=== PATIENT | female | born 1940 | race Hispanic/Latino ===

== ENCOUNTER 2018-11-20 08:25 | Outpatient (CLI) | payer MEDICARE ==
--- NOTE | 2018-11-20 12:01 | CT ---
CT ABDOMEN AND PELVIS WITH AND WITHOUT IV CONTRAST: Date: 11/20/18 HISTORY: Microscopic hematuria. History of left breast cancer, left lumpectomy, and chemo/radiation therapy se veral years ago. COMPARISON: 10/03/14. FINDINGS: There are mild patchy densities in the right lung base. There are punctate radiopaque densities in th e dependent portion of the gallbladder. The liver, spleen, pancreas, and right adrenal gland are norm al. The 2.0 x 2.6 cm left adrenal nodule is stable. No calculi seen in the kidneys, ureters, or the urinary bladder. No hydroureteronephrosis is noted on either side. There are low density lesions in the kidneys, one of which was noted in the right inferior pole. The others were not definitely seen on the previous study. The small cyst in the inferior pole of the rig ht kidney is stable. There is normal contrast excretion into the ureters and urinary bladder. No free air, free fluid, or lymphadenopathy seen in the abdomen or pelvis. There are vascular calcifi cations without evidence of aneurysmal dilatation of the abdominal aorta. A small hiatal hernia is ag ain seen. There are degenerative changes in the spine. A right hip arthroplasty is present. There is colonic diverticulosis. Uterus is present. A tiny, fat-containing umbilical hernia is present. A subc utaneous nodule in the right anterolateral abdominal wall is again seen. IMPRESSION: 1. No CT evidence of urinary tract calculi/obstruction, or enhancing renal mass. 2. Probable renal cysts. Confirmation is recommended with renal ultrasound. 3. Colonic diverticulosis. 4. Small hiatal hernia. 5. Stable left adrenal nodule. POS: MACK
[2018-11-20] MEDS ORDERED: ISOVUE-370 76%-LOCM 1 ML ONE (16:53)
== END 2018-11-20 08:26 | disposition home or self-care (01) ==
LOC: BICCT 08:25
PROVIDERS: ATTEND Urology
DX: R31.29 Other microscopic hematuria (principal); K57.30 Diverticulosis of large intestine without perforation or abscess without bleeding; K44.9 Diaphragmatic hernia without obstruction or gangrene; E27.8 Other specified disorders of adrenal gland
CPT/HCPCS: 74178; 82565

== ENCOUNTER 2019-01-02 01:15 | Outpatient (CLI) | payer MEDICARE ==
[2019-01-02 11:01] LABS: Hemoglobin 13.8 g/dL (12.0-16.0); Mean Corpuscular Volume 91.1 fL (78.0-98.0); Mean Platelet Volume 7.8 fL (7.4-10.4); Platelet Count 273 thou/uL (130-400); RBC Distribution Width 12.2 % (11.5-14.5); Red Blood Cell (RBC) Count 4.59 mill/uL (4.20-5.40); White Blood Cell (WBC) Count 8.1 thou/uL (4.8-10.8)
--- NOTE | 2019-01-02 16:32 | EKG ---
Test Reason : Blood Pressure : / mmHG Vent. Rate : 070 BPM Atrial Rate : 070 BPM P-R Int : 178 ms QRS Dur : 086 ms QT Int : 420 ms P-R-T Axes : 040 000 013 degrees QTc Int : 453 ms Normal sinus rhythm Anterior infarct , age undetermined cannot be excluded Abnormal ECG Confirmed by ASHWIN VIRGEN ([id number]) on 01/02/2019 4:31:56 PM Referred By: FRED Confirmed By:ASHWIN VIRGEN
== END 2019-01-02 01:16 | disposition home or self-care (01) ==
LOC: LABBT 01:15
PROVIDERS: ATTEND Urology
DX: Z01.818 Encounter for other preprocedural examination (principal); R31.29 Other microscopic hematuria; E27.9 Disorder of adrenal gland, unspecified; R35.1 Nocturia; N39.41 Urge incontinence; R35.0 Frequency of micturition; Q61.9 Cystic kidney disease, unspecified; R89.9 Unspecified abnormal finding in specimens from other organs, systems and tissues
CPT/HCPCS: 85027; 93005; 93010

== ENCOUNTER 2019-01-16 05:37 | Day surgery (SDC) | payer MEDICARE ==
[2019-01-02 10:08] VITALS: BMI 28.6
[2019-01-16] MEDS ORDERED: CEFAZOLIN 1 GM in Sodium Chloride 0.9% 100 ML IVPB SCH (06:00)
[2019-01-16] MEDS ORDERED: Fentanyl 100 MCG/2 ML VIAL ONE (06:45)
[2019-01-16] MEDS ORDERED: Iothalamate Meglumine 60% 50 ML VIAL FS ONE (07:05)
[2019-01-16] MEDS ORDERED: PHENYLEPHRINE-NS 100 MCG/ML 10 ML SYRINGE ONE (08:29)
[2019-01-16] MEDS ORDERED: Dexamethasone 20 MG/5 ML VIAL ONE (08:29)
[2019-01-16] MEDS ORDERED: Ondansetron PF 4 MG/2 ML Vial ONE (08:29)
[2019-01-16] MEDS ORDERED: ePHEDrine 50 MG/ML VIAL ONE (08:29)
[2019-01-16] MEDS ORDERED: PROPOFOL 200 MG/20 ML VIAL ONE (08:29)
[2019-01-16] MEDS ORDERED: Lidocaine 1% PF 5 ML VIAL ONE (08:29)
[2019-01-16] MEDS ORDERED: B & O ONE (08:44)
[2019-01-16] MEDS ORDERED: HYDROcodone/Acetaminophen 5/325 mg Tablet ONE (10:36)
--- NOTE | 2019-01-16 11:55 | OP ---
DATE OF PROCEDURE: 01/16/2019 PREOPERATIVE DIAGNOSIS: Small bladder tumor. POSTOPERATIVE DIAGNOSIS: Small bladder tumor. PROCEDURES PERFORMED: Cystoscopy, transurethral resection of bladder tumor and bladder biopsies with fulguration, mitomycin. ANESTHESIA: General with laryngeal mask airway. FINDINGS: Small tumor at the bladder neck extending to the bladder floor. No other abnormal findings or mucosa. SPECIMENS: Random biopsies; right wall, left wall, trigone, posterior wall and dome and then, there were biopsies of the mass at the bladder neck on the left and bladder floor on the left and then, there was actual resection specimens from each of this. COMPLICATIONS: None. DRAIN REMAINING: An 18-Swazi 2-way. INDICATIONS OF PROCEDURE: The patient is a 78-year-old female, who was seen in the office for microhematuria and overactive bladder and noted to have a small bladder tumor, so was set up for resection. DESCRIPTION OF PROCEDURE: She was brought into the room by Anesthesia and laid on the table in supine position. After receiving general anesthetic, her legs were placed in lithotomy position and her perineum was prepped and draped in sterile fashion. Using a 30 and a 70 degree lens, the bladder was inspected and found to have a known small bladder tumor at the bladder neck, did appear to extend and be somewhat to the left bladder floor. There were no other abnormal findings in the bladder and ureteral orifices were in normal position. So at this point, random bladder biopsies were performed with cold cup biopsy of the right wall, left wall, posterior wall, trigone, and dome. Then, there were cold cup biopsies taken of the tumor itself from the bladder neck first and then the bladder floor. Then, the cystoscope was exchanged out to a resectoscope and the tumor areas were resected fully sending a separate specimen from the bladder neck tumor as well as the bladder floor tumor. Then, hemostasis was achieved with coagulation with the loop on all the prior biopsies about as well as the tumor spots. All specimens were extracted and sent with the bladder decompressed. No bleeding was noted. So at this point, the scope was removed the final time and an 18-Swazi Burr was placed and then 40 mg of mitomycin was instilled, the bladder clamped and attached to the drainage bag, but still kept clamped and she would have that for the hour in the postoperative period. At this point, the patient was awakened and transferred to the PACU. Job ID: [id number]
== END 2019-01-16 11:41 | disposition home or self-care (01) ==
LOC: SDC 05:37
PROVIDERS: ATTEND Urology
PROC: 0T5B8ZZ Destruction of Bladder, Via Natural or Artificial Opening Endoscopic (ICD-10-PCS; principal; 2019-01-16)
PROC: 0TBB8ZX Excision of Bladder, Via Natural or Artificial Opening Endoscopic, Diagnostic (ICD-10-PCS; 2019-01-16)
DX: D49.4 Neoplasm of unspecified behavior of bladder (principal); R31.29 Other microscopic hematuria; N32.81 Overactive bladder
CPT/HCPCS: 52204; 52234; J9280; 88305; 88307; C1758; J0690; J1100; J2001; J2405; J2704; J3010; J3490; J7050; Q9961

== ENCOUNTER 2019-02-01 11:20 | Outpatient (CLI) | payer MEDICARE ==
[2019-02-01 13:47] LABS: Anion Gap 13 mmol/L (10-20); BUN (Urea Nitrogen) 32 mg/dL (9.8-20.1); Calc. Creatinine Clearance 0 mL/min (70-130); Calcium 9.9 mg/dL (7.8-10.44); Carbon Dioxide 23 mmol/L (23-31); Chloride 107 mmol/L (98-107); Estimated GFR-MDRD 40; Glucose 97 mg/dL (83-110); Sodium 139 mmol/L (136-145)
== END 2019-02-01 11:21 | disposition home or self-care (01) ==
LOC: LABBT 11:20
PROVIDERS: ATTEND Urology
DX: Z01.812 Encounter for preprocedural laboratory examination (principal); C67.9 Malignant neoplasm of bladder, unspecified; R31.29 Other microscopic hematuria; E27.9 Disorder of adrenal gland, unspecified; R35.1 Nocturia; N39.41 Urge incontinence; R35.0 Frequency of micturition; Q61.9 Cystic kidney disease, unspecified; R89.9 Unspecified abnormal finding in specimens from other organs, systems and tissues
CPT/HCPCS: 80048

== ENCOUNTER 2019-02-06 06:02 | Day surgery (SDC) | payer MEDICARE ==
[2019-02-01 11:34] VITALS: BMI 28.5
[2019-02-06] MEDS ORDERED: Levofloxacin 500 mg/D5W 100 ml Premix Bag ONE (06:26)
[2019-02-06] MEDS ORDERED: Fentanyl 100 MCG/2 ML VIAL ONE (08:44)
[2019-02-06] MEDS ORDERED: Ondansetron PF 4 MG/2 ML Vial ONE (12:36)
[2019-02-06] MEDS ORDERED: Rocuronium Bromide 10 MG/ML (10ML VIAL) ONE (12:36)
[2019-02-06] MEDS ORDERED: ePHEDrine 50 MG/ML VIAL ONE (12:36)
[2019-02-06] MEDS ORDERED: Dexamethasone 20 MG/5 ML VIAL ONE (12:36)
[2019-02-06] MEDS ORDERED: PROPOFOL 200 MG/20 ML VIAL ONE (12:36)
[2019-02-06] MEDS ORDERED: Glycopyrrolate 0.2 MG/ML 5 ML SYRINGE ONE (12:36)
[2019-02-06] MEDS ORDERED: Lidocaine 1% PF 5 ML VIAL ONE (12:36)
[2019-02-06] MEDS ORDERED: PHENYLEPHRINE-NS 100 MCG/ML 10 ML SYRINGE ONE (12:36)
--- NOTE | 2019-02-06 15:16 | OP ---
DATE OF PROCEDURE: 02/06/2019 PREOPERATIVE DIAGNOSES: Bladder cancer, T1 G3 status post recent transurethral resection to determine this, returning for a repeat transurethral resection of the bladder tumor base. ANESTHESIA: General with laryngeal mask with ET tube. COMPLICATIONS: None. SPECIMENS: Bladder tumor base. DRAINS: Drains remaining, 18-Swedish 2-way. PROCEDURES PERFORMED: Transurethral resection of the bladder tumor base with instillation of mitomycin. INDICATIONS OF PROCEDURE: The patient is a 78-year-old female, who was followed in the office for issues and noted to have micro hematuria, which resulted in a small tumor being noted on cystoscopy and so, she was set up for resection, which revealed larger at the time of resection and ultimately came back for high-grade disease as well as CIS on a random bladder biopsy with path being T1 disease, so she returns for repeat resection. DESCRIPTION OF PROCEDURE: The patient was brought into the room by Anesthesia, laid on the table in supine position. After receiving general anesthetic, her legs were placed in lithotomy position and her perineum was prepped and draped in a sterile fashion. Using a 25-Swedish resectoscope, the urethra has traversed, the bladder inspected at the tumor base. Further resection was taken of the entire bed, where prior resection had taken place and then hemostasis was achieved with the loop as well as switching over to the button for further coagulative properties with the bladder decompressed. Hemostasis was ensured and the bladder emptied, resectoscope removed, and an 18-Swedish catheter placed to gravity. Then, a total of 40 mg mitomycin was instilled and the tube clamped, and the patient was awakened and transferred to PACU in stable condition with all remain approximately an hour and then be removed leaving the indwelling remaining for 24-hour period. Job ID: [id number]
--- NOTE | 2019-02-08 06:50 | PQF ---
[facility] POST DISCHARGE CLINICAL DOCUMENTATION IMPROVEMENT CLARIFICATION FORM l Todays Date: 02/06/19 l Patients Name OTIS HOPKINS l l Admit Date 02/06/19 l Disch Date 02/06/19 Metal Fabricating Inspector Name Princess Ash Email: @[email or web address] Cell: [phone] To be completed by Metal Fabricating Inspector: Present Clinical Indicators - Signs / Symptoms Results and Location in Medical Record [ ] Documentation of: [ ] [ ] Documentation of: [ ] [ ] Documentation of: [ ] [ ] Documentation of: [ ] [ ] Risks [ ] [ ] [ ] Treatment [ ] RESECTION OF BLADDER TUMOR Query for size of bladder tumor [ ] Resection BED of PRIOR tumor was about [id number] [ ] To be completed by Physician: VENUS WADE The documentation in this patients record requires clarification to ensure coding compliance and accuracy. Check the appropriate box and include in your discharge summary. [ ] [ ] [ ] [ ] Please check this box if this does not apply to this patient [ ] Unable to determine [ ] Other diagnosis: T1G3 disease with repeat resectino of bed being standard of care to ensure proper staging Review the following information and exercise your independent professional judgment in responding to the clarification. Based upon the clinical findings, risk factors, and treatment, please clarify if you are treating one of the above probable or suspected diagnoses. Physician Signature: ___Venus James Date 4/11/19_ Time [address] [facility]
== END 2019-02-06 10:45 | disposition home or self-care (01) ==
LOC: SDC 06:02
PROVIDERS: ATTEND Urology
PROC: 0TBB8ZX Excision of Bladder, Via Natural or Artificial Opening Endoscopic, Diagnostic (ICD-10-PCS; principal; 2019-02-06)
PROC: 3E0K705 Introduction of Other Antineoplastic into Genitourinary Tract, Via Natural or Artificial Opening (ICD-10-PCS; 2019-02-06)
DX: N30.00 Acute cystitis without hematuria (principal); N32.89 Other specified disorders of bladder; I10 Essential (primary) hypertension; E78.00 Pure hypercholesterolemia, unspecified; Z85.3 Personal history of malignant neoplasm of breast; Z92.21 Personal history of antineoplastic chemotherapy; Z92.3 Personal history of irradiation; Z79.899 Other long term (current) drug therapy; Z98.890 Other specified postprocedural states
CPT/HCPCS: 51720; 52235; 88305; J9280; J1100; J1956; J2001; J2405; J2704; J3010; J3490; J7050

== ENCOUNTER 2020-09-22 14:07 | Inpatient (IN) | payer MEDICARE ==
[2020-09-22 15:10] LABS: #Eosinphils 0.3 thou/uL (0.0-0.7); #Lymphocytes 1.5 thou/uL (1.20-3.40); #Monocytes 0.7 thou/uL (0.11-0.59); #Neutrophils 10.2 thou/uL (1.40-6.50); %Basophils 0.4 % (0.0-1.0); %Eosinophils 2.6 % (0.0-10.0); %Lymphocytes 11.9 % (21.0-51.0); %Monocytes 5.7 % (0.0-10.0); %Neutrophils 79.5 % (42.0-75.0); Hemoglobin 14.1 g/dL (12.0-16.0); Mean Corpuscular HGB CONC 33.7 g/dL (32.0-36.0); Mean Corpuscular Hemoglobin 30.9 pg (27.0-31.0); Mean Corpuscular Volume 91.8 fL (78.0-98.0); Platelet Count 293 thou/uL (130-400); RBC Distribution Width 12.6 % (11.5-14.5); Red Blood Cell (RBC) Count 4.56 mill/uL (4.20-5.40); White Blood Cell (WBC) Count 12.9 thou/uL (4.8-10.8)
--- NOTE | 2020-09-22 15:23 | CT ---
CT head noncontrast HISTORY: Altered mental status. Dizziness. FINDINGS: No comparison. There is no evidence of acute intracranial hemorrhage or infarct. Diffuse cortical atrophy and mild c hronic ischemic small vessel disease are apparent. There is no mass effect or shift of midline structures. Calcification within the arterial structures of the brain base. IMPRESSION : No acute intracranial abnormalities are demonstrated. Atherosclerosis.
[2020-09-22 15:33] LABS: Bacteria/HPF 4+ HPF (None Seen); Bilirubin Negative (Negative); Blood, Urine 1+ (Negative); Clarity Turbid (Clear); Glucose, Urine (Dipstick) Normal (Negative); Ketone, Urine Negative (Negative); Leukocyte 500 Leu/uL (Negative); Nitrite Negative (Negative); Protein, Urine (Dipstick) 70 mg/dL (Neg-Trace); Specific Gravity, Urine 1.013 (1.002-1.036); Squamous Epithelial 0-3 HPF (0-3); Urobilinogen Normal mg/dL (Less than 2); WBC/HPF Greater than 50 HPF (0-3); pH, Urine 6.5 (5.0-9.0)
[2020-09-22 15:37] LABS: ALT (SGPT) 22 U/L (8-55); AST (SGOT) 38 U/L (5-34); Albumin 4.3 g/dL (3.4-4.8); Alkaline Phosphatase 97 U/L (40-110); Anion Gap 16 mmol/L (10-20); BUN (Urea Nitrogen) 23 mg/dL (9.8-20.1); Bilirubin, Total 0.2 mg/dL (0.2-1.2); Calc. Creatinine Clearance 0 mL/min (70-130); Calcium 9.8 mg/dL (7.8-10.44); Carbon Dioxide 23 mmol/L (23-31); Chloride 103 mmol/L (98-107); Estimated GFR-MDRD 35; Globulin 3.9 g/dL (2.4-3.5); Glucose 96 mg/dL (83-110); Potassium 3.9 mmol/L (3.5-5.1); Protein, Total 8.2 g/dL (6.0-8.3); Sodium 138 mmol/L (136-145)
[2020-09-22 15:55] LABS: CKMB 1.3 ng/mL (0-6.6)
[2020-09-22] MEDS ORDERED: cefTRIAXone\\ROCEPHIN 1 GM VIAL ONE (16:06)
--- NOTE | 2020-09-22 16:13 | RAD ---
PORTABLE CHEST: History: Syncope Comparison: 02-23-08 FINDINGS: Heart size is enlarged. There are atherosclerotic changes of the aorta. Lungs show chronic appearing change without focal infiltrates. Mitral annulus calcifications are present. IMPRESSION: Cardiomegaly with chronic appearing lung change. POS: AH
[2020-09-22] MEDS ORDERED: Acetaminophen 325 MG TAB PO PRN (17:29)
--- NOTE | 2020-09-22 18:36 | HP ---
CHIEF COMPLAINT: Balance problem. HISTORY OF PRESENT ILLNESS: This is an 80-year-old female with history of hypertension; bladder cancer, undergoing treatment with Dr. Gamal Tamayo of Urology; chronic kidney disease stage 3; dyslipidemia; remote history of breast cancer; who presents to the emergency room with a complaint of balance problems. The patient reports that occurred today when she was at [employer]. She had to rely on others to get to the table. She denies feeling dizzy or feeling like she was going to pass out. She also denies feeling lightheaded or like the room was spinning. She states that it was only when she was standing, she did not have any problems sitting down. There were no precipitating or relieving factors. She does have a history of vertigo and states that today was different. The patient denies any nausea or vomiting, she denies any chest pain or difficulty breathing, she denies any urinary changes or bowel pattern changes. She also denies any falling. In the emergency room, the patient diagnosed with the UTI and received 1 L of IV fluid and 1 g of ceftriaxone, and hospitalist called for admission. ALLERGIES: NO KNOWN DRUG ALLERGIES. CURRENT MEDICATIONS: She is on losartan, cholesterol medicine, oxybutynin, but does not know the doses of any of these. PAST MEDICAL HISTORY: 1. Bladder cancer, undergoing treatment with Dr. Gamal Tamayo of Urology. 2. Vertigo. 3. Hypertension. 4. History of breast cancer and lumpectomy. 5. Chronic kidney disease stage 3. 6. Dyslipidemia. PAST SURGICAL HISTORY: 1. Hip replacement. 2. Lumpectomy. FAMILY HISTORY: Significant for a sister, who had bladder cancer and another sister, who had another type of cancer. SOCIAL HISTORY: The patient denies any tobacco or alcohol use. The patient is a full code. Her surrogate decision maker is her daughter, Sybil. REVIEW OF SYSTEMS: Positive for intermittent pain in the right side of her jaw that she states is due to her teeth, and chills. Negative for fevers, nausea, vomiting, or diarrhea. All remaining review of systems are reviewed and negative. PHYSICAL EXAMINATION: VITAL SIGNS: Blood pressure 140/57, pulse 84, respirations 20, temperature 98.7, saturations 95% on room air. GENERAL: Awake, alert, responsive, not in apparent distress. Able to speak in full sentences. HEENT: Her pupils are equal and round. Extraocular movements are intact. Oral mucosa is pink and moist. NECK: Supple, nontender. No carotid bruits. LYMPHATICS: No palpable cervical or supraclavicular lymphadenopathy. LUNGS: Clear to auscultation bilateral. No audible wheezing, rhonchi, or rales. HEART: Normal S1 and S2. Regular rate and rhythm. No significant murmur. ABDOMEN: Soft. Present bowel sounds. Nontender, nondistended. EXTREMITIES: No clubbing, cyanosis, or edema. NEURO: Strength in upper and lower extremities 5/5. Cranial nerves grossly intact. PSYCH: Appears euthymic. VASCULAR: 2+ radial pulses. SKIN: No present rashes. LABORATORY DATA: Personally reviewed. CBC; 12.9, 14.1, 41.9, 293. Chemistry; 138, 3.9, 103, 23, 23, 1.44, 96. T-bili 0.2, AST 38, ALT 22, alkaline phosphatase 97, total protein 8.2, albumin 4.3. Urinalysis present protein, 500 leukocyte esterase, 11 to 20 red blood cells, greater than 50 white blood cells, 4+ bacteria. IMAGING STUDIES: CT of the brain without contrast, no acute changes. Portable chest x-ray, cardiomegaly with chronic appearing lung change. Abdomen and pelvis CT on September 19 showed no obvious urinary bladder abnormality, diverticulosis, right renal cyst, cholelithiasis, left adrenal mass, punctate stable left renal calculi. IMPRESSION: 1. Balance problems, uncertain etiology in a patient with history of vertigo. 2. Possible urinary tract infection in a patient undergoing treatment for bladder cancer. 3. Indeterminate troponin and abnormal EKG, asymptomatic. 4. Hypertension, unknown control. 5. Chronic kidney disease, stage 3, stable. 6. Dyslipidemia. 7. Remote history of breast cancer. 8. Abnormal recent CT with diverticulosis, right renal cysts, cholelithiasis, and left adrenal mass, and left renal calculus will all need followup in the outpatient setting. PLAN: 1. Observation status in the hospital. 2. Consultation with Dr. Bravo of Urology. We will follow blood and urine culture, continue Rocephin. 3. Monitor on telemetry. Obtain two additional troponins and trend. If the patient remains asymptomatic and telemetry is normal, anticipate any evaluation can be deferred to the outpatient setting. 4. Obtain medication list, so that her home medications can be continued. 5. We will check orthostatic vital signs, PT and OT consults to evaluate strength and balance. 6. Check TSH in the morning. 7. DVT prophylaxis. The patient is ambulatory. We will use SCDs. 8. GI prophylaxis, not indicated. 9. Code status is full. Surrogate decision maker is the patient's daughter, Sybil. The patient is at high risk given age, comorbidities, and current presentation. Anticipated length of stay is 1 midnight at this time, further needs in the hospital will be based on input from Urology, and monitoring as noted above. I reviewed the plan of care with the patient, who demonstrates understanding and agrees, no questions or further needs at the end of evaluation. Job ID: [id number] MTDD
[2020-09-22 18:55] LABS: Troponin I 0.458 ng/mL (< 0.028)
[2020-09-22] MEDS ORDERED: Heparin 10,000 UNITS/ 10 ML VIAL SLOW IVP SCH (19:00)
[2020-09-22] MEDS ORDERED: Heparin 25,000 units/D5W 500 ML IVPB SCH (19:00)
[2020-09-22] MEDS ORDERED: hydrALAZINE 20 MG/ML VIAL SLOW IVP PRN (19:04)
--- NOTE | 2020-09-22 19:08 | PDOC.BPN ---
- Brief Progress Note Encounter Date: 09/22/20 Encounter Time: 19:05 Informed by RN that recent troponin is positive (0.45) which is a change compared to earlier. Although the patient is not having active chest pain, she did have a change in condition/balance which may reflect NSTEMI. Will start heparin drip/cardiac protocol - choosing this because of both chronic kidney disease and microscopic hematuria. Will also administer a full dose aspirin, start beta connor, order an echocardiogram and Cardiology consult. Manage blood pressure and order prn nitroglycerin. ER nurse advised of these orders.
[2020-09-22] MEDS ORDERED: Nitroglycerin 0.4 MG TAB (25 Tab Bottle) SL PRN (19:09)
[2020-09-22] MEDS ORDERED: Aspirin Chewable 81 MG TAB PO SCH (19:15)
[2020-09-22] MEDS ORDERED: Atorvastatin Calcium 20 MG TAB PO SCH (21:00)
[2020-09-22 21:28] LABS: Hemoglobin 14.2 g/dL (12.0-16.0); Platelet Count 251 thou/uL (130-400)
[2020-09-22 21:54] VITALS: BMI 25.8
[2020-09-22 22:00] LABS: Troponin I 0.968 ng/mL (< 0.028)
[2020-09-22] MEDS: Metoprolol Tartrate 25 MG TAB PO SCH (22:22)
[2020-09-23 04:39] LABS: #Basophils 0.1 thou/uL (0.0-0.2); #Eosinphils 0.1 thou/uL (0.0-0.7); #Lymphocytes 2.4 thou/uL (1.20-3.40); #Monocytes 0.7 thou/uL (0.11-0.59); #Neutrophils 10.5 thou/uL (1.40-6.50); %Basophils 0.6 % (0.0-1.0); %Eosinophils 0.8 % (0.0-10.0); %Lymphocytes 17.5 % (21.0-51.0); %Monocytes 5.4 % (0.0-10.0); %Neutrophils 75.8 % (42.0-75.0); Hemoglobin 12.4 g/dL (12.0-16.0); Mean Corpuscular HGB CONC 33.6 g/dL (32.0-36.0); Mean Corpuscular Hemoglobin 30.6 pg (27.0-31.0); Mean Corpuscular Volume 91.3 fL (78.0-98.0); Mean Platelet Volume 8.9 fL (7.4-10.4); Platelet Count 253 thou/uL (130-400); RBC Distribution Width 12.6 % (11.5-14.5); Red Blood Cell (RBC) Count 4.05 mill/uL (4.20-5.40); White Blood Cell (WBC) Count 13.9 thou/uL (4.8-10.8)
[2020-09-23 04:57] LABS: Anion Gap 17 mmol/L (10-20); BUN (Urea Nitrogen) 22 mg/dL (9.8-20.1); Calc. Creatinine Clearance 39 mL/min (70-130); Calcium 8.7 mg/dL (7.8-10.44); Carbon Dioxide 20 mmol/L (23-31); Chloride 103 mmol/L (98-107); Estimated GFR-MDRD 41; Glucose 107 mg/dL (83-110); Potassium 4.1 mmol/L (3.5-5.1); Sodium 136 mmol/L (136-145)
[2020-09-23 07:35] LABS: SARS-CoV-2 MS2 Positive; SARS-CoV-2 N Gene Negative; SARS-CoV-2 S Gene Negative; SARS-CoV-2 by NAA Not Detected (NotDetected); SARS-CoV-2 orf1ab Negative
--- NOTE | 2020-09-23 07:47 | CON ---
DATE OF CONSULTATION: 09/23/2020 REASON FOR CONSULT: Mental status changes and history of bladder cancer. HISTORY OF PRESENT ILLNESS: Ms. 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 James. The patient has subsequently transitioned her care with va, restaging TURBT demonstrated necrosis, no evidence of residual tumor and she has been treated and has completed her induction BCG, and has tolerated BCG uneventfully and was recently treated on September 22, with her maintenance #4 three weekly BCG. The patient states that per routine tolerated her BCG uneventfully. Denies chills, fever, dysuria, or significant gross hematuria. Subsequently, she presented to [facility], was having a meal. However, she had some dizziness and balance issue and felt that she was going to have a syncopal episode. She does have history of vertigo and felt that this was concerning and presented to the emergency room with no nausea, vomiting, or fever. In the emergency room, she was diagnosed for presumed UTI, received 1 g of Rocephin, and is admitted to the Medical Service. She states that she feels significantly better and denies dysuria, flank pain, chills, gross hematuria of concern. PAST MEDICAL HISTORY: Includes hypertension, hypercholesteremia, history of vertigo, history of breast cancer status post surgery and RT chemo, and bladder cancer pathologic T1 grade 3 TCC component of carcinoma in situ. PAST SURGICAL HISTORY: 1. Hip replacement in 2002. 2. TURBT in December 2018. 3. Restaging TURBT in January 2019. 4. She has undergone multiple surveillance cystoscopies in my office, last cystoscopy of record on September 03, 2020, demonstrates no residual cancer of concern. ALLERGIES: NO KNOWN DRUG ALLERGIES. MEDICATIONS INHOUSE: 1. Tylenol. 2. Aspirin 325. 3. Lipitor. 4. Rocephin. 5. Heparin drip. 6. Hydralazine. 7. Metoprolol. 8. Nitroglycerin. SOCIAL HISTORY: Negative for other malignancy. She is a , retired, and nonsmoker. REVIEW OF SYSTEMS: A 10-point review of systems as above, otherwise noncontributory. PHYSICAL EXAMINATION: VITAL SIGNS: T-current is 98, T-max of 100.2, 98, 67, 18, 94%, and 105/55. I's and O's are not documented. GENERAL: The patient appears to be in no acute distress. Alert and oriented. HEENT: Grossly unremarkable. HEART: Regular rate. LUNGS: Clear. ABDOMEN: Soft. No rigidity. No rebound. No CVA tenderness. No suprapubic tenderness or distention of concern. EXTREMITIES: No cyanosis, clubbing, or edema. PSYCHIATRIC: Appears to be appropriate and intact. NEUROLOGIC: I do not appreciate any gross focal deficits of concern. EXTREMITIES: No cyanosis, clubbing, or edema. MUSCULOSKELETAL: Moving all extremities equal and symmetric. SKIN: No gross lesions or rashes appreciated. PERTINENT LABORATORY DATA: White count 13, hemoglobin 12.4, and platelet 253. PTT is 88.4. The patient currently receiving anticoagulation. Creatinine is 1.25 and BUN is 22. Troponins on arrival 0.036, subsequently 0.458 and 0.968. Chest x-ray is grossly unremarkable, September 22, 2020. CT of the brain September 22, 2020, no acute abnormality. Staging CT, which was performed per my discretion September 19 demonstrates no visible recurrence or filling defect of concern. Incidental punctate left renal lithiasis, not of clinical significance, cholelithiasis, stable right renal cyst 1.7, and adrenal lesion, which was seen previously. UA; 500 leukocytes, 11 to 20 rbc's, greater than 50 wbc's, light yellow urine, 0 to 3 epithelials, and 4+ bacteria. Blood culture and urine culture are pending. IMPRESSION AND PLAN: 1. An 80-year-old female, admitted for mental status changes. CT and chest x- ray negative. 2. Elevated troponins. Remains on heparin drip. 3. 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 4. UA positive for bacteria with low-grade fever. Agree with Rocephin, await urine culture. Cardiology consultation and workup are in progress as she has elevated troponin. Monitor urine output, she may develop gross hematuria, as she is on heparin drip, and has history of BCG intravesical, which can cause inflammation of the bladder. We will have nurses keep voided urine at bedside to monitor for degree of hematuria. From urologic perspective, she is scheduled for her maintenance BCG dose next Tuesday. This will be pending her Cardiology workup, and her final culture. From urologic perspective, patient can be discharged with appropriate oral antibiotic regimen based on a urine culture for targeted antibiotic therapy. Job ID: [id number] MTDD
[2020-09-23] MEDS ORDERED: Milk Of Magnesia 30 ML UDCUP PO PRN (08:30)
[2020-09-23] MEDS ORDERED: Meclizine HCl 25 MG TAB PO PRN (08:30)
[2020-09-23] MEDS: Oxybutynin 5 MG TAB PO SCH (09:49)
[2020-09-23] MEDS: Metoprolol Tartrate 25 MG TAB PO SCH ×2 (09:49→20:29)
--- NOTE | 2020-09-23 14:05 | PDOC.HOSPP ---
- Subjective Encounter Date: 09/23/20 Encounter Time: 11:45 Subjective: Patient up in bed denies any chest pain or shortness of breath. - Objective Vital Signs & Weight: Vital Signs (12 hours) Temp Pulse Pulse Pulse Resp BP BP 09/23/20 11:05 62 61 127/67 134/62 09/23/20 06:14 09/23/20 03:43 98.1 F 67 18 BP BP BP Pulse Ox 09/23/20 11:05 09/23/20 06:14 105/55 L 120/57 L 99/52 L 09/23/20 03:43 106/57 L 94 L Weight Weight 150 lb 9.6 oz I&O: 09/22/20 09/23/20 09/24/20 06:59 06:59 06:59 Intake Total 368.2 Output Total 750 Balance -381.8 Result Diagrams: 09/23/20 04:00 09/23/20 04:00 Hospitalist ROS - Review of Systems Cardiovascular: denies: chest pain, palpitations, orthopnea, paroxysmal noc. dyspnea, edema, light headedness, other Gastrointestinal: denies: nausea, vomiting, abdominal pain, diarrhea, constipation, melena, hematochezia, other Genitourinary: denies: dysuria, frequency, incontinence, hematuria, retention, other - Medication Medications: Active Medications Generic Name Dose Route Start Last Admin Trade Name Freq PRN Reason Stop Dose Admin Metoprolol Tartrate 25 mg 09/22/20 21:00 09/23/20 09:49 Metoprolol Tartrate 25 Mg Tab PO 25 mg BID KILEY Administration Oxybutynin Chloride 5 mg 09/23/20 09:00 09/23/20 09:49 Oxybutynin 5 Mg Tab PO 5 mg DAILY KILEY Administration - Exam Neck: negative: supple, symmetric, no JVD, no thyromegaly, no lymphadenopathy, no carotid bruit, JVD Heart: negative: RRR, no murmur, no gallops, no rubs, normal peripheral pulses, irregular, diminshed peripheral pulses, murmur present, II/IV, III/IV Respiratory: negative: CTAB, no wheezes, no rales, no ronchi, normal chest expansion, no tachypnea, normal percussion, rales, rhonchi, tachypneic, wheezes Gastrointestinal: negative: soft, non-tender, non-distended, normal bowel sounds, no palpable masses, no hepatomegaly, no splenomegaly, no bruit, no guarding, no rigidity, tender to palpation, distended, diminished bowl sounds, voluntary guarding Hosp A/P (1) Unsteadiness Code(s): R26.81 - UNSTEADINESS ON FEET Status: Acute (2) NSTEMI (non-ST elevated myocardial infarction) Code(s): I21.4 - NON-ST ELEVATION (NSTEMI) MYOCARDIAL INFARCTION Status: Acute (3) UTI (urinary tract infection) Status: Acute (4) Bladder cancer Status: Acute - Plan Patient denies any chest pain or shortness of breath she came in with some gait disturbance. CT head was negative. Patient's orthostatics appropriate response. Spoke with urology who feels given her current treatment for bladder cancer she is at high risk for hematuria we will stop heparin drip for now cardiology has been consulted echocardiogram has been done. We will check a vitamin B12. Patient seen by physical therapy recommended discharge home. We will also get an MRI brain to rule out stroke.
--- NOTE | 2020-09-23 15:35 | MRI ---
MRI BRAIN NONCONTRAST: DATE: 09/23/2020 HISTORY: 80-year-old female with multiple falls due to dizziness and unsteady gait. Altered mental status. COMPARISON: No prior brain MRI FINDINGS: Tiny intra-axial lesions that are hyperintense on T2 WI and FLAIR, with restricted diffusion, consist ent with acute lacunar infarctions: 4 x 2 mm lesion in right cerebellar hemisphere. 5 x 4 mm lesion at medial right thalamus. 6 x 5 mm lesion at lateral aspect of left thalamus. Mild to moderate chronic ischemic white matter changes of cerebrum. No recent or major remote intra-axial hemorrhage. Ventricles are normal in size and configuration. Diffuse age-appropriate brain parenchymal volume loss. No mass effect, midline shift, or extra-axial fluid collection. Appropriate flow voids are maintained at central arteries of [place]. IMPRESSION: 3 tiny acute lacunar infarctions in the right cerebellar hemisphere and bilateral thalami.
[2020-09-23] MEDS ORDERED: cefTRIAXone\\ROCEPHIN 1 GM in Sodium Chloride 0.9% 100 ML IVPB SCH (17:00)
--- NOTE | 2020-09-23 17:28 | CON ---
DATE OF CONSULTATION: 09/23/2020 REASON FOR CONSULTATION: Sepsis with increased troponin. PRIMARY PLANS EXAMINER: Angelo Sahu MD HISTORY OF PRESENT ILLNESS: Ms. Vigil is an 80-year-old woman. The patient presented to the hospital with problem with her balance. She is not having chest pain or pressure. She felt dizzy and lightheaded, felt like she might pass out. She was found to have urinary tract infection, was admitted, found to have increased troponin also. There was no chest pain or pressure. The patient had undergone stress testing in [address] Sahu, not found to have any ischemia, normal stress test. REVIEW OF SYSTEMS: CONSTITUTIONAL: No significant weight gain or loss. VISION: No changes. HEARING: No changes. PULMONARY: No cough or wheezing. GASTROINTESTINAL: No nausea, vomiting, diarrhea. SKIN: No rashes. NEUROLOGIC: No unilateral weakness or numbness. PSYCHIATRIC: No unusual depression or anxiety. HEMATOLOGIC: No unusual bruising. GENITOURINARY: No burning with urination. PHYSICAL EXAMINATION: GENERAL: This is a pleasant elderly woman. She looks younger than her chronologic age of 80. VITAL SIGNS: Blood pressure has been variable 99/52 to 120/57, pulse 62 and regular. EYES: Sclerae nonicteric. MOUTH: Mucous membranes moist. NECK: Supple. No lymphadenopathy. LUNGS: Clear. CARDIAC: Normal S1, normal S2. There is no murmur, rub, or gallop. ABDOMEN: Soft, nontender. EXTREMITIES: Warm and dry. No clubbing or cyanosis. There is no edema. DIAGNOSTIC STUDIES: EKG, sinus rhythm, looks like an old inferior infarct, but it is not dramatically different from the EKG done in 2019. There are very small R-waves in III and aVF. Creatinine is 1.25. ASSESSMENT: 1. Urinary tract infection. 2. Type 2 myocardial infarction, [id number] myocardial infarction, demand ischemia. PLAN: 1. Agree with aspirin. 2. Agree with holding heparin for concern of having hematuria. 3. Continue metoprolol. 4. Echocardiogram has been done, I will review that. 5. No other recommendations at the present time. Job ID: [id number]
[2020-09-23] MEDS ORDERED: Aspirin 325 MG TAB PO SCH (20:00)
[2020-09-23] MEDS ORDERED: Atorvastatin Calcium 10 MG TAB PO SCH (21:00)
[2020-09-24 05:01] LABS: Critical Call Chem Troponin I RESULT DECREASING; Troponin I 0.632 ng/mL (< 0.028)
--- NOTE | 2020-09-24 07:45 | PRG ---
DATE OF SERVICE: 09/24/2020 SUBJECTIVE: The patient is feeling well. Denies dysuria, flank pain, or gross hematuria of concern. OBJECTIVE: VITAL SIGNS: Stable. She has been afebrile for 24 hours. GENERAL: The patient is in no acute distress. ABDOMEN: Soft, nontender, and nondistended. EXTREMITIES: No cyanosis, clubbing, or edema. LABORATORY STUDIES: Urine culture gram-negative tres. Final sensitivity, ID pending. Blood culture negative. IMPRESSION AND PLAN: 1. Ms. Vigil is an 80-year-old female with history of transitional cell carcinoma of the bladder, status post transurethral resection of bladder tumor on maintenance BCG. 2. Admitted for mental status changes, dizziness. 3. History of vertigo. 4. Gram-negative tres urinary tract infection. 5. Elevated troponins due to demand ischemia. The patient is clinically stable. From my perspective, the patient can be discharged when sensitivity ID finalized for targeted oral antibiotic regimen. She has an appointment with our office on Tuesday, which is for her schedule BCG. This will need to be deferred. However, I would like for her to come in for a nurse visit, so we made recheck the UA, C and S to proceed with BCG at the next 1 to 2 weeks. Recommend antibiotic therapy for minimum 7 to 10 days Job ID: [id number] [facility]
[2020-09-24] MEDS ORDERED: Cefdinir 300 MG CAP PO SCH (09:00)
[2020-09-24] MEDS: Metoprolol Tartrate 25 MG TAB PO SCH (09:10)
[2020-09-24] MEDS: Oxybutynin 5 MG TAB PO SCH (09:10)
--- NOTE | 2020-09-24 09:29 | PRG ---
DATE OF SERVICE: 09/24/2020 SUBJECTIVE: Ms. Vigil is sitting up at the bedside. She feels well. No complaints. No chest pain or pressure. OBJECTIVE: VITAL SIGNS: Blood pressure 109/57, pulse 66 and regular. LUNGS: Clear. CARDIAC: Normal S1, normal S2. ABDOMEN: Soft, nontender. EXTREMITIES: No edema. LABORATORY DATA: Echocardiogram today, wall motion with normal ejection fraction 55% to 60%. ASSESSMENT: Status post episode of sepsis with increased troponin. PLAN: From a cardiac standpoint, no further intervention necessary at this point. She is on oral antibiotics and metoprolol. From a cardiac standpoint, the patient could be and to follow up with Dr. Sahu within a few weeks. Job ID: [id number]
--- NOTE | 2020-09-24 11:43 | PQF ---
CLINICAL DOCUMENTATION CLARIFICATION FORM: Dear Dr. OCTAVIA GAINES Date: 09-24-20 Please exercise your independent, professional judgment in responding to the clarification form. Clinical indicators are provided on the bottom of this form for your review. Please check appropriate box(es) to clarify if the following diagnosis has been ruled in our ruled out: SEPSIS [ ] Ruled in diagnosis [x ] Continue to treat [ ] Resolved [ ] Ruled out diagnosis [ ] Other diagnosis [ ] Unable to determine In addition, please specify: Present on Admission (POA): [ x ] Yes [ ] No [ ] Unable to determine For continuity of documentation, please document condition throughout progress notes and discharge summary. Thank You. To be completed by CDI/Coding staff for physician review: CLINICAL INDICATORS - SIGNS / SYMPTOMS / LABS / RESULTS AND LOCATION IN MR: ER DX 09-22-20: UTI, ELEVATED TROPONIN. WEAKNESS DR. URENA 09-24-20: S/P EPISODE OF SEPSIS WITH INCREASED TROPONIN WBC: 09-22-20: 12.9 09-23-20: 13.9 NEUTROPHILS: 09-22-20: 79.5 09-23-20: 75.8 RISK FACTORS / RESULTS AND LOCATION IN MR: ER DX 09-22-20: UTI, ELEVATED TROPONIN. WEAKNESS DR. URENA 09-24-20: S/P EPISODE OF SEPSIS WITH INCREASED TROPONIN TREATMENTS / RESULTS AND LOCATION IN MR: ER NOTES 09-22-20: CEFTRIAXONE IV, NS IVF CDS Signature: Tigist Proctor Phone #: [phone] Date: 09-24-20 This is a permanent part of the Medical Record [facility]
[2020-09-24 12:43] VITALS: BP 132/58; TEMP 97.7
--- NOTE | 2020-09-25 02:47 | DIS ---
DATE OF ADMISSION: 09/23/2020 DATE OF DISCHARGE: 09/24/2020 DISCHARGE DIAGNOSES: 1. Sepsis, resolved. 2. Urinary tract infection. 3. Elevated troponins, most likely secondary to type 2 demand related. 4. Low vitamin D level. HOSPITAL COURSE: The patient is an 80-year-old female, who initially presented to the hospital with significant amount of balancing problems and dizziness. This happened a few days prior to coming into the hospital. She at that time was noted for having a UTI, which cultures indicated E coli. Given her history of bladder cancer, she is currently under treatment with BCG. She was noted to have some elevated troponins, however, had no chest pain, no significant EKG changes. She underwent an echocardiogram and a cardiology consult. Echocardiogram indicated an EF of 55% to 60%, left atrium is normal size. Per Cardiology, I recommended following up as an outpatient with her fire boat engineer, Dr. Sahu. The patient at this time was discharged home. She will follow up with Urology and Cardiology. HOME MEDICATIONS: Will be: 1. Aspirin 81 mg daily. 2. Cefdinir 300 mg b.i.d. 3. Vitamin B12 1000 mcg daily. She was also discharged on: 1. Metoprolol low dose 12.5 b.i.d. 2. Meclizine as needed. 3. Oxybutynin 5 mg daily. 4. Losartan/hydrochlorothiazide 1 daily. 5. Lovastatin 40 mg daily. PHYSICAL EXAMINATION: VITAL SIGNS: On discharge are as of the following, temperature of 98.1, pulse 70, respiratory rate , oxygen saturation 96% on room air, blood pressure 132/58. GENERAL: She is awake, alert, and oriented x3. Does not appear in distress. CV: S1, S2 present. No murmurs, rubs, or gallops. Again, she will be discharged home to follow up with her primary with Urology and Cardiology and also provided home health for her. Also, I have asked to check her blood pressures. Job ID: [id number]
== END 2020-09-24 14:38 | disposition home health service (06) | DRG 871 ==
LOC: ERS 14:07 → ERHOLD 16:27 → 2NO 20:28 → OBSVTOIN 09-23 08:35
PROVIDERS: ADMIT Family Medicine; ATTEND Internal Medicine
DX: A41.51 Sepsis due to Escherichia coli [E. coli] (principal); I21.A1 Myocardial infarction type 2; N39.0 Urinary tract infection, site not specified; Z20.828 Contact with and (suspected) exposure to other viral communicable diseases; I12.9 Hypertensive chronic kidney disease with stage 1 through stage 4 chronic kidney disease, or unspecified chronic kidney disease; N18.30 Chronic kidney disease, stage 3 unspecified; E78.5 Hyperlipidemia, unspecified; E78.00 Pure hypercholesterolemia, unspecified; Z96.651 Presence of right artificial knee joint; Z85.51 Personal history of malignant neoplasm of bladder; Z79.899 Other long term (current) drug therapy
CPT/HCPCS: 36415; 70450; 70551; 71045; 80048; 80053; 81003; 81015; 82553; 82607; 83605; 84443; 84484; 85025; 85730; 87040; 87077; 87086; 87186; 87635; 93005; 93306; 96365; G0378; J0696; J1644; J3490; U0003

== ENCOUNTER 2021-10-12 12:03 | Outpatient (CLI) | payer MEDICARE | END 2021-10-12 12:04 | disposition home or self-care (01) | LOC: BICCT 12:03 | PROVIDERS: ATTEND Urology | DX: C67.9 Malignant neoplasm of bladder, unspecified (principal); N28.9 Disorder of kidney and ureter, unspecified; K80.20 Calculus of gallbladder without cholecystitis without obstruction; K57.30 Diverticulosis of large intestine without perforation or abscess without bleeding; I70.90 Unspecified atherosclerosis; E27.8 Other specified disorders of adrenal gland | CPT/HCPCS: 74176 ==

== ENCOUNTER 2024-04-12 13:30 | Outpatient (CLI) | payer OTHER | END 2024-04-12 13:31 | disposition home or self-care (01) | LOC: BICCT 13:30 | PROVIDERS: ATTEND Urology | DX: C67.9 Malignant neoplasm of bladder, unspecified (principal); N28.1 Cyst of kidney, acquired; K57.30 Diverticulosis of large intestine without perforation or abscess without bleeding; E27.8 Other specified disorders of adrenal gland; I34.81 Nonrheumatic mitral (valve) annulus calcification; Z96.641 Presence of right artificial hip joint | CPT/HCPCS: 74178 ==

== ENCOUNTER 2024-08-28 15:50 | Inpatient (IN) | payer OTHER ==
[2024-08-28 16:53] LABS: #Basophils 0.05 10x3/uL (0.0-0.2); %Basophils 0.5 % (0.0-1.0); %Lymphocytes 24.1 % (21.0-51.0); %Monocytes 9.3 % (0.0-10.0); %Neutrophils 64.7 % (42.0-75.0); Hematocrit 38.4 % (36.0-47.0); Hemoglobin 12.7 g/dL (12.0-16.0); Mean Corpuscular HGB CONC 33.1 g/dL (32.0-36.0); Mean Corpuscular Volume 90.6 fL (78.0-98.0); Mean Platelet Volume 9.7 fL (7.4-10.4); Platelet Count 264 10x3/uL (130-400); RBC Distribution Width 13.3 % (11.5-14.5); Red Blood Cell (RBC) Count 4.24 mill/uL (4.20-5.40)
[2024-08-28 17:06] LABS: INR-International Normal Ratio 1.1; PTT 28.6 sec (22.9-36.1); Prothrombin Time 14.1 sec (12.0-14.7)
[2024-08-28 17:14] LABS: Troponin I 0.079 ng/mL (< 0.028)
[2024-08-28] MEDS ORDERED: Aspirin 325 MG TAB ONE (17:19)
[2024-08-28 17:34] LABS: ALT (SGPT) 14 U/L (8-55); AST (SGOT) 36 U/L (5-34); Albumin 3.5 g/dL (3.4-4.8); Alkaline Phosphatase 70 U/L (40-110); Anion Gap 15 mmol/L (10-20); BUN (Urea Nitrogen) 17 mg/dL (9.8-20.1); Bilirubin, Total 0.5 mg/dL (0.2-1.2); Calc. Creatinine Clearance 0 mL/min (70-130); Calcium 10.1 mg/dL (7.8-10.44); Carbon Dioxide 18 mmol/L (23-31); Chloride 103 mmol/L (98-107); Estimated GFR 45; Globulin 4.9 g/dL (2.4-3.5); Glucose 102 mg/dL (83-110); Potassium 5.1 mmol/L (3.5-5.1); Protein, Total 8.4 g/dL (5.8-8.1); Sodium 131 mmol/L (136-145)
[2024-08-28] MEDS ORDERED: hydrALAZINE 20 MG/ML VIAL SLOW IVP PRN (18:18)
[2024-08-28 18:41] VITALS: BMI 24.2
[2024-08-28] MEDS: Atorvastatin Calcium 40 MG TAB PO SCH (21:49)
[2024-08-28 23:26] LABS: Troponin I 0.074 ng/mL (< 0.028)
[2024-08-29 03:58] LABS: #Basophils 0.05 10x3/uL (0.0-0.2); %Basophils 0.6 % (0.0-1.0); %Lymphocytes 25.8 % (21.0-51.0); %Monocytes 11.4 % (0.0-10.0); Hematocrit 34.7 % (36.0-47.0); Hemoglobin 11.2 g/dL (12.0-16.0); Mean Corpuscular HGB CONC 32.3 g/dL (32.0-36.0); Mean Corpuscular Hemoglobin 30.1 pg (27.0-31.0); Mean Corpuscular Volume 93.3 fL (78.0-98.0); Mean Platelet Volume 10.6 fL (7.4-10.4); Platelet Count 288 10x3/uL (130-400); RBC Distribution Width 13.2 % (11.5-14.5); Red Blood Cell (RBC) Count 3.72 mill/uL (4.20-5.40)
[2024-08-29 04:18] LABS: Anion Gap 16 mmol/L (10-20); BUN (Urea Nitrogen) 22 mg/dL (9.8-20.1); Calc. Creatinine Clearance 38 mL/min (70-130); Calcium 9.4 mg/dL (7.8-10.44); Carbon Dioxide 21 mmol/L (23-31); Cardiac Risk 3.2 (Less than 4.5); Chloride 102 mmol/L (98-107); Cholesterol 126 mg/dl (< 200 Desired); Estimated GFR 48; Glucose 92 mg/dL (83-110); HDL Cholesterol 40 mg/dL (>60 Neg Risk); LDL Cholesterol, Calculated 65 mg/dL; Potassium 4.6 mmol/L (3.5-5.1); Sodium 134 mmol/L (136-145); Triglycerides 104 mg/dL (Less than 150)
[2024-08-29] MEDS: Oxybutynin ER 5 MG TAB PO SCH (08:36)
[2024-08-29] MEDS: Clopidogrel Bisulfate 75 MG TAB PO SCH (08:36)
[2024-08-29] MEDS: Aspirin 81 mg Enteric Coated Tablet PO SCH (08:37)
[2024-08-29] MEDS ORDERED: Ondansetron PF 4 MG/2 ML Vial IVP PRN (20:21)
[2024-08-29] MEDS ORDERED: Acetaminophen 325 MG TAB PO PRN (20:21)
[2024-08-30 04:11] LABS: #Basophils 0.05 10x3/uL (0.0-0.2); %Basophils 0.6 % (0.0-1.0); %Eosinophils 3.9 % (0.0-10.0); %Lymphocytes 26.5 % (21.0-51.0); %Monocytes 10.5 % (0.0-10.0); %Neutrophils 58.3 % (42.0-75.0); Hematocrit 36.3 % (36.0-47.0); Hemoglobin 11.9 g/dL (12.0-16.0); Mean Corpuscular HGB CONC 32.8 g/dL (32.0-36.0); Mean Corpuscular Hemoglobin 30.2 pg (27.0-31.0); Mean Corpuscular Volume 92.1 fL (78.0-98.0); Mean Platelet Volume 10.8 fL (7.4-10.4); Platelet Count 237 10x3/uL (130-400); RBC Distribution Width 13.3 % (11.5-14.5); Red Blood Cell (RBC) Count 3.94 mill/uL (4.20-5.40)
[2024-08-30 04:34] LABS: Anion Gap 14 mmol/L (10-20); BUN (Urea Nitrogen) 20 mg/dL (9.8-20.1); Calc. Creatinine Clearance 36 mL/min (70-130); Calcium 9.5 mg/dL (7.8-10.44); Carbon Dioxide 20 mmol/L (23-31); Chloride 106 mmol/L (98-107); Estimated GFR 46; Glucose 95 mg/dL (83-110); Magnesium 2.1 mg/dL (1.6-2.6); Potassium 4.8 mmol/L (3.5-5.1); Sodium 135 mmol/L (136-145)
[2024-08-30] MEDS: Enoxaparin 40 MG (0.4 mL) SYRINGE SC SCH (08:06)
[2024-08-31 15:47] VITALS: BP 160/75; TEMP 97.7
== END 2024-08-31 16:32 | disposition home health service (06) | DRG 64 ==
LOC: ERS 15:50 → 2SE 17:19
PROVIDERS: ADMIT Family Medicine; ATTEND Family Medicine
DX: I63.9 Cerebral infarction, unspecified (principal); G93.6 Cerebral edema; I21.A1 Myocardial infarction type 2; E87.1 Hypo-osmolality and hyponatremia; I12.9 Hypertensive chronic kidney disease with stage 1 through stage 4 chronic kidney disease, or unspecified chronic kidney disease; N18.30 Chronic kidney disease, stage 3 unspecified; E78.5 Hyperlipidemia, unspecified; C67.9 Malignant neoplasm of bladder, unspecified; Z85.3 Personal history of malignant neoplasm of breast
CPT/HCPCS: 36415; 70450; 70551; 80048; 80053; 80061; 83735; 84443; 84484; 85025; 85610; 85730; 93005; 93306; 93880; 94760; J1650

== ENCOUNTER 2024-10-09 14:57 | Inpatient (IN) | payer OTHER ==
[~2024-10-09 14:57] MED LIST: Iopamidol-370 76% 500 ML MDV (1 ML CHARGE) ONE
[2024-10-09 15:28] LABS: #Basophils Less than 0.03 10x3/uL (0.0-0.2); #Eosinophils Less than 0.03 10x3/uL (0.0-0.7); %Basophils 0.2 % (0.0-1.0); %Lymphocytes 4.8 % (21.0-51.0); %Monocytes 1.1 % (0.0-10.0); %Neutrophils 93.6 % (42.0-75.0); Hematocrit 40.3 % (36.0-47.0); Hemoglobin 13.8 g/dL (12.0-16.0); Mean Corpuscular HGB CONC 34.2 g/dL (32.0-36.0); Mean Corpuscular Hemoglobin 30.1 pg (27.0-31.0); Mean Platelet Volume 10.1 fL (7.4-10.4); Platelet Count 275 10x3/uL (130-400); RBC Distribution Width 13.4 % (11.5-14.5); Red Blood Cell (RBC) Count 4.58 mill/uL (4.20-5.40)
[2024-10-09 15:38] LABS: ALT (SGPT) 26 U/L (8-55); AST (SGOT) 36 U/L (5-34); Albumin 3.7 g/dL (3.4-4.8); Alkaline Phosphatase 128 U/L (40-110); Anion Gap 17 mmol/L (10-20); BUN (Urea Nitrogen) 16 mg/dL (9.8-20.1); Bilirubin, Total 0.5 mg/dL (0.2-1.2); CK (CPK) 58 U/L (29-168); Calc. Creatinine Clearance 0 mL/min (70-130); Calcium 9.8 mg/dL (7.8-10.44); Carbon Dioxide 19 mmol/L (23-31); Chloride 104 mmol/L (98-107); Estimated GFR 56; Glucose 159 mg/dL (83-110); Potassium 4.4 mmol/L (3.5-5.1); Protein, Total 7.7 g/dL (5.8-8.1); Sodium 136 mmol/L (136-145)
[2024-10-09 15:43] LABS: Troponin I 0.087 ng/mL (< 0.028)
[2024-10-09 15:44] LABS: PTT 25.7 sec (22.9-36.1); Prothrombin Time 13.2 sec (12.0-14.7)
[2024-10-09 16:51] LABS: Bacteria/HPF None Seen HPF (None Seen); Bilirubin Negative (Negative); Blood, Urine 2+ (Negative); CAUTI Indications for Culture Alt mental st,lethar; Clarity Turbid (Clear); Glucose, Urine (Dipstick) 50 mg/dL (Negative); Ketone, Urine Trace mg/dL (Negative); Leukocyte Negative Leu/uL (Negative); Nitrite Negative (Negative); Protein, Urine (Dipstick) 30 mg/dL (Neg-Trace); Specific Gravity, Urine 1.039 (1.002-1.036); Squamous Epithelial 0-3 HPF (0-3); Urobilinogen Normal mg/dL (Less than 2); WBC/HPF None Seen HPF (0-3)
[2024-10-09 16:52] LABS: Urine Culture Reflex No No
[2024-10-09] MEDS ORDERED: hydrALAZINE 20 MG/ML VIAL ONE ×2 (17:13→18:36)
[2024-10-09 18:35] LABS: Lactic Acid 1.82 mmol/L (0.5-2.2)
[2024-10-09] MEDS ORDERED: Ondansetron PF 4 MG/2 ML Vial IVP PRN (19:33)
[2024-10-09] MEDS ORDERED: hydrALAZINE 20 MG/ML VIAL SLOW IVP PRN (19:40)
[2024-10-09 19:41] LABS: Troponin I 0.105 ng/mL (< 0.028)
[2024-10-09 22:20] LABS: Troponin I 0.141 ng/mL (< 0.028)
[2024-10-09 22:45] VITALS: BMI 23.9
[2024-10-09] MEDS: Lactated Ringer's 1,000 ML IV SCH (22:47)
[2024-10-09] MEDS: Atorvastatin Calcium 40 MG TAB PO SCH (22:49)
[2024-10-10 03:47] LABS: #Basophils 0.03 10x3/uL (0.0-0.2); #Eosinophils Less than 0.03 10x3/uL (0.0-0.7); %Basophils 0.2 % (0.0-1.0); %Lymphocytes 6.3 % (21.0-51.0); %Monocytes 5.3 % (0.0-10.0); %Neutrophils 87.8 % (42.0-75.0); Hematocrit 40.3 % (36.0-47.0); Hemoglobin 13.6 g/dL (12.0-16.0); Mean Corpuscular HGB CONC 33.7 g/dL (32.0-36.0); Mean Corpuscular Hemoglobin 29.6 pg (27.0-31.0); Mean Corpuscular Volume 87.6 fL (78.0-98.0); Mean Platelet Volume 10.5 fL (7.4-10.4); Platelet Count 309 10x3/uL (130-400); RBC Distribution Width 13.6 % (11.5-14.5)
[2024-10-10 04:13] LABS: Anion Gap 19 mmol/L (10-20); BUN (Urea Nitrogen) 21 mg/dL (9.8-20.1); Calc. Creatinine Clearance 38 mL/min (70-130); Carbon Dioxide 20 mmol/L (23-31); Chloride 102 mmol/L (98-107); Estimated GFR 49; Glucose 141 mg/dL (83-110); Sodium 137 mmol/L (136-145)
[2024-10-10] MEDS ORDERED: Aspirin 81 mg Enteric Coated Tablet PO SCH (09:00)
[2024-10-10] MEDS: Clopidogrel Bisulfate 75 MG TAB PO SCH (09:26)
[2024-10-10] MEDS: Aspirin 300 MG Suppository PR SCH (09:26)
[2024-10-10] MEDS: Losartan 25 MG TAB PO SCH (09:26)
[2024-10-10] MEDS: Oxybutynin ER 5 MG TAB PO SCH (09:26)
[2024-10-10] MEDS ORDERED: Etomidate 40 MG (20 mL) VIAL ONE (16:00)
[2024-10-10] MEDS: Etomidate 40 MG (20 mL) VIAL IVP SCH (16:40)
[2024-10-10] MEDS: PROPOFOL 200 MG/20 ML VIAL IV SCH (16:43)
[2024-10-10] MEDS ORDERED: Ventilator Sedation Protocol 1 EACH FS SCH (16:54)
[2024-10-10] MEDS: Propofol 1,000 MG/100 ML VIAL IV PRN (17:00)
[2024-10-10] MEDS ORDERED: Dextrose 50% Abboject 50 ML SYRINGE SLOW IVP PRN (17:12)
[2024-10-10] MEDS ORDERED: Dextrose 5% in Water 1,000 ML IV PRN (17:12)
[2024-10-10] MEDS ORDERED: Glucagon 1 MG/ML KIT IM PRN (17:12)
[2024-10-10] MEDS ORDERED: Fentanyl CADD 100 ML IV SCH (17:30)
[2024-10-10] MEDS ORDERED: Fentanyl BOLUS 250 ML IVPB PRN (17:30)
[2024-10-10] MEDS ORDERED: Propofol BOLUS 1,000 MG/100 ML VIAL IV PRN (17:30)
[2024-10-10] MEDS ORDERED: DISCONTINUE PREVIOUS NARCOTIC PAIN MEDICATIONS AND BENZODIAZEPINES FS SCH (17:30)
[2024-10-10 17:37] LABS: Actual Bicarbonate (HCO3a) 21.3 mEq/L (22-28); Base Excess (BEa) -0.5 mEq/L (-2.0 to +3.0); CO2 Tension 27.7 mmHg (35.0-45.0); Calcium, Ionized (arterial) 1.25 mmol/L (1.12-1.30); Carboxyhemoglobin (COHb) 0.6 gm% (0.0-3.0); Hematocrit-ABG 41 % (36.0-47.0); Hemoglobin (Hb) 14.1 g/dL (12.0-16.0); O2 Tension (PaO2), arterial 68.6 mmHg (> 60.0); Potassium - ABG Lab 3.69 mmol/L (3.70-5.30); pH, Arterial 7.504 (7.35-7.45)
[2024-10-10 17:39] LABS: ALV-art Gradient 324.575 mmHg (0-20); Puncture Site Right Radial artery
[2024-10-10] MEDS: Propofol 1,000 MG/100 ML VIAL IV ONE (18:12)
[2024-10-10] MEDS: Piperacillin/Tazobactam 3.375 GM in Sodium Chloride 0.9% 100 ML IVPB SCH ×2 (19:07→21:08)
[2024-10-10] MEDS ORDERED: Piperacillin/Tazobactam 3.375 GM in Sodium Chloride 0.9% 100 ML IVPB SCH (20:00)
[2024-10-10] MEDS: Famotidine/PF 20 mg/2ml Vial SLOW IVP SCH (21:04)
[2024-10-10] MEDS: Morphine 2 MG/ML VIAL SLOW IVP PRN (21:28)
[2024-10-11 04:38] LABS: Hematocrit 36.1 % (36.0-47.0); Hemoglobin 12.2 g/dL (12.0-16.0); Mean Corpuscular HGB CONC 33.8 g/dL (32.0-36.0); Mean Corpuscular Volume 88.9 fL (78.0-98.0); Mean Platelet Volume 10.4 fL (7.4-10.4); Platelet Count 272 10x3/uL (130-400); Red Blood Cell (RBC) Count 4.06 mill/uL (4.20-5.40)
[2024-10-11 04:47] LABS: Anion Gap 15 mmol/L (10-20); BUN (Urea Nitrogen) 33 mg/dL (9.8-20.1); Calc. Creatinine Clearance 30 mL/min (70-130); Calcium 9.5 mg/dL (7.8-10.44); Carbon Dioxide 21 mmol/L (23-31); Chloride 107 mmol/L (98-107); Estimated GFR 37; Glucose 103 mg/dL (83-110); Potassium 3.9 mmol/L (3.5-5.1); Sodium 139 mmol/L (136-145)
[2024-10-11 05:06] LABS: Band 40 % (5-11); Lymphocytes 5 % (21-51); Metamyelocyte 2 % (0-0); Monocytes 5 % (0-10); Neutrophil 49 % (42-75); Platelet Adequacy Comment Platelets Normal
[2024-10-11 07:14] LABS: ALV-art Gradient 225.325 mmHg (0-20); Actual Bicarbonate (HCO3a) 21.3 mEq/L (22-28); Base Excess (BEa) -1.2 mEq/L (-2.0 to +3.0); CO2 Tension 29.5 mmHg (35.0-45.0); Calcium, Ionized (arterial) 1.22 mmol/L (1.12-1.30); Carboxyhemoglobin (COHb) 0.5 gm% (0.0-3.0); Hematocrit-ABG 38 % (36.0-47.0); O2 Tension (PaO2), arterial 94.3 mmHg (> 60.0); Potassium - ABG Lab 3.83 mmol/L (3.70-5.30); Puncture Site Right Radial artery; pH, Arterial 7.477 (7.35-7.45)
[2024-10-11] MEDS ORDERED: Electrolyte Replacement Protocol FS PRN (08:15)
[2024-10-11] MEDS: Scopolamine 1 mg/72 hour Patch TD SCH (08:40)
[2024-10-11] MEDS: Electrolyte Replacement Protocol 1 EACH FS ONE (20:40)
[2024-10-11] MEDS: Acetaminophen 325 MG TAB PO PRN (21:30)
[2024-10-12 03:57] LABS: #Basophils 0.06 10x3/uL (0.0-0.2); %Basophils 0.4 % (0.0-1.0); %Eosinophils 1.3 % (0.0-10.0); %Lymphocytes 4.1 % (21.0-51.0); %Monocytes 3.9 % (0.0-10.0); %Neutrophils 89.7 % (42.0-75.0); Hematocrit 32.8 % (36.0-47.0); Hemoglobin 10.8 g/dL (12.0-16.0); Mean Corpuscular HGB CONC 32.9 g/dL (32.0-36.0); Mean Corpuscular Hemoglobin 29.5 pg (27.0-31.0); Mean Corpuscular Volume 89.6 fL (78.0-98.0); Mean Platelet Volume 10.2 fL (7.4-10.4); Platelet Count 213 10x3/uL (130-400); RBC Distribution Width 14.2 % (11.5-14.5); Red Blood Cell (RBC) Count 3.66 mill/uL (4.20-5.40)
[2024-10-12 04:15] LABS: Anion Gap 10 mmol/L (10-20); BUN (Urea Nitrogen) 29 mg/dL (9.8-20.1); Calc. Creatinine Clearance 36 mL/min (70-130); Calcium 9.2 mg/dL (7.8-10.44); Carbon Dioxide 23 mmol/L (23-31); Chloride 109 mmol/L (98-107); Estimated GFR 46; Glucose 118 mg/dL (83-110); Potassium 3.4 mmol/L (3.5-5.1); Sodium 139 mmol/L (136-145)
[2024-10-12] MEDS: Potassium Bicarbonate/Cit Ac 20 MEQ TAB PER TUBE SCH (10:11)
[2024-10-12 12:13] LABS: Potassium 4.3 mmol/L (3.5-5.1)
[2024-10-12] MEDS: hydrALAZINE 20 MG/ML VIAL SLOW IVP PRN (17:20)
[2024-10-12] MEDS: Lorazepam 2 MG/ML VIAL SLOW IVP PRN (20:08)
[2024-10-13 08:00] LABS: #Basophils 0.04 10x3/uL (0.0-0.2); %Basophils 0.3 % (0.0-1.0); %Eosinophils 4.2 % (0.0-10.0); %Lymphocytes 5.6 % (21.0-51.0); %Monocytes 5.1 % (0.0-10.0); Hematocrit 32.6 % (36.0-47.0); Hemoglobin 10.8 g/dL (12.0-16.0); Mean Corpuscular HGB CONC 33.1 g/dL (32.0-36.0); Mean Corpuscular Hemoglobin 29.8 pg (27.0-31.0); Mean Corpuscular Volume 90.1 fL (78.0-98.0); Mean Platelet Volume 10.2 fL (7.4-10.4); Platelet Count 254 10x3/uL (130-400); RBC Distribution Width 13.8 % (11.5-14.5); Red Blood Cell (RBC) Count 3.62 mill/uL (4.20-5.40)
[2024-10-13 08:18] LABS: Anion Gap 12 mmol/L (10-20); BUN (Urea Nitrogen) 23 mg/dL (9.8-20.1); Calc. Creatinine Clearance 48 mL/min (70-130); Calcium 8.9 mg/dL (7.8-10.44); Carbon Dioxide 21 mmol/L (23-31); Chloride 110 mmol/L (98-107); Estimated GFR 58; Glucose 119 mg/dL (83-110); Potassium 3.6 mmol/L (3.5-5.1); Sodium 139 mmol/L (136-145)
[2024-10-14 05:44] LABS: #Basophils 0.03 10x3/uL (0.0-0.2); %Basophils 0.2 % (0.0-1.0); %Eosinophils 10.9 % (0.0-10.0); %Lymphocytes 7.5 % (21.0-51.0); %Monocytes 9.6 % (0.0-10.0); %Neutrophils 70.6 % (42.0-75.0); Hematocrit 32.7 % (36.0-47.0); Hemoglobin 10.6 g/dL (12.0-16.0); Mean Corpuscular HGB CONC 32.4 g/dL (32.0-36.0); Mean Corpuscular Hemoglobin 29.1 pg (27.0-31.0); Mean Corpuscular Volume 89.8 fL (78.0-98.0); Mean Platelet Volume 9.8 fL (7.4-10.4); Platelet Count 248 10x3/uL (130-400); Red Blood Cell (RBC) Count 3.64 mill/uL (4.20-5.40)
[2024-10-14 06:24] LABS: Anion Gap 11 mmol/L (10-20); BUN (Urea Nitrogen) 21 mg/dL (9.8-20.1); Calc. Creatinine Clearance 58 mL/min (70-130); Calcium 8.4 mg/dL (7.8-10.44); Carbon Dioxide 21 mmol/L (23-31); Chloride 110 mmol/L (98-107); Estimated GFR 73; Glucose 131 mg/dL (83-110); Potassium 3.7 mmol/L (3.5-5.1); Sodium 138 mmol/L (136-145)
[2024-10-15 05:19] LABS: #Basophils 0.04 10x3/uL (0.0-0.2); %Basophils 0.3 % (0.0-1.0); %Eosinophils 5.2 % (0.0-10.0); %Lymphocytes 9.9 % (21.0-51.0); %Neutrophils 73.2 % (42.0-75.0); Hematocrit 32.4 % (36.0-47.0); Hemoglobin 10.7 g/dL (12.0-16.0); Mean Corpuscular Hemoglobin 29.5 pg (27.0-31.0); Mean Corpuscular Volume 89.3 fL (78.0-98.0); Mean Platelet Volume 9.6 fL (7.4-10.4); Platelet Count 286 10x3/uL (130-400); RBC Distribution Width 13.8 % (11.5-14.5); Red Blood Cell (RBC) Count 3.63 mill/uL (4.20-5.40)
[2024-10-15 05:51] LABS: Anion Gap 13 mmol/L (10-20); BUN (Urea Nitrogen) 19 mg/dL (9.8-20.1); Calc. Creatinine Clearance 48 mL/min (70-130); Calcium 8.9 mg/dL (7.8-10.44); Carbon Dioxide 21 mmol/L (23-31); Chloride 109 mmol/L (98-107); Estimated GFR 57; Glucose 76 mg/dL (83-110); Sodium 139 mmol/L (136-145)
[2024-10-15 08:08] VITALS: BP 156/83; TEMP 100.6
[2024-10-15] MEDS ORDERED: Lorazepam 2 MG/ML VIAL SLOW IVP PRN (09:19)
[2024-10-15] MEDS ORDERED: Morphine 2 MG/ML VIAL SLOW IVP PRN (09:20)
[2024-10-15 09:32] VITALS: BMI 26.6
[2024-10-15] MEDS: Lorazepam 2 MG/ML VIAL SLOW IVP PRN (09:45)
[2024-10-15] MEDS ORDERED: Acetaminophen 650 MG Suppository PR PRN (09:46)
[2024-10-15] MEDS: Morphine 4 MG/ML VIAL SLOW IVP PRN (10:21)
== END 2024-10-15 16:56 | disposition hospice, inpatient (51) | DRG 64 ==
LOC: ERS 14:57 → ERHOLD 18:33 → 2NO 18:46 → CCU 10-10 16:31 → T4-A 10-14 18:54
PROVIDERS: ADMIT Internal Medicine; ATTEND Internal Medicine
PROC: 4A00X4Z Measurement of Central Nervous Electrical Activity, External Approach (ICD-10-PCS; principal; 2024-10-10)
PROC: 0BH17EZ Insertion of Endotracheal Airway into Trachea, Via Natural or Artificial Opening (ICD-10-PCS; 2024-10-10)
PROC: 3E03329 Introduction of Other Anti-infective into Peripheral Vein, Percutaneous Approach (ICD-10-PCS; 2024-10-10)
PROC: 5A1945Z Respiratory Ventilation, 24-96 Consecutive Hours (ICD-10-PCS; 2024-10-10)
PROC: 4A133R1 Monitoring of Arterial Saturation, Peripheral, Percutaneous Approach (ICD-10-PCS; 2024-10-10)
DX: I63.9 Cerebral infarction, unspecified (principal); A41.9 Sepsis, unspecified organism; I21.A1 Myocardial infarction type 2; J69.0 Pneumonitis due to inhalation of food and vomit; J96.01 Acute respiratory failure with hypoxia; G81.91 Hemiplegia, unspecified affecting right dominant side; N17.9 Acute kidney failure, unspecified; Z51.5 Encounter for palliative care; Z66 Do not resuscitate; E78.5 Hyperlipidemia, unspecified; Z96.641 Presence of right artificial hip joint; N18.30 Chronic kidney disease, stage 3 unspecified; C67.9 Malignant neoplasm of bladder, unspecified; I65.29 Occlusion and stenosis of unspecified carotid artery; I13.10 Hypertensive heart and chronic kidney disease without heart failure, with stage 1 through stage 4 chronic kidney disease, or unspecified chronic kidney disease; Z85.3 Personal history of malignant neoplasm of breast
CPT/HCPCS: 36415; 36416; 36600; 70450; 70496; 70498; 71045; 74018; 80048; 80053; 81001; 82550; 82805; 83605; 84484; 85025; 85610; 85730; 86850; 86900; 86901; 87428; 93005; 94002; 94003; 94760; 95700; 95711; 95957; 96374; 96376; J0360; J2060; J2272; J2543; J2704; J3490; J7120; Q9967

== ENCOUNTER 2024-10-15 18:42 | Inpatient (IN) | payer OTHER ==
[2024-10-15] MEDS ORDERED: Lorazepam 2 MG/ML VIAL SLOW IVP PRN (18:55)
[2024-10-15] MEDS ORDERED: Morphine 4 MG/ML VIAL SLOW IVP PRN (18:55)
[2024-10-15] MEDS: Morphine 4 MG/ML VIAL SLOW IVP SCH (20:28)
[2024-10-15] MEDS: Lorazepam 2 MG/ML VIAL SLOW IVP SCH (20:29)
[2024-10-16 09:00] VITALS: BP 108/68; TEMP 99.3
== END 2024-10-16 14:16 | disposition expired | DRG 951 ==
LOC: T4-A 18:42
PROVIDERS: ADMIT Family Medicine; ATTEND Family Medicine
DX: Z51.5 Encounter for palliative care (principal); I63.9 Cerebral infarction, unspecified; J69.0 Pneumonitis due to inhalation of food and vomit; J96.01 Acute respiratory failure with hypoxia; I21.A1 Myocardial infarction type 2; A41.9 Sepsis, unspecified organism; N18.30 Chronic kidney disease, stage 3 unspecified; I12.9 Hypertensive chronic kidney disease with stage 1 through stage 4 chronic kidney disease, or unspecified chronic kidney disease; E78.5 Hyperlipidemia, unspecified; Z86.73 Personal history of transient ischemic attack (TIA), and cerebral infarction without residual deficits; Z98.890 Other specified postprocedural states; C67.9 Malignant neoplasm of bladder, unspecified; Z66 Do not resuscitate
CPT/HCPCS: J2060; J2272